=== PATIENT | female | born 1960 | race Caucasian/White ===

== ENCOUNTER 2016-12-14 09:36 | Outpatient (CLI) | payer OTHER ==
[2015-09-30 19:07] VITALS: BP 161/84
[2016-12-14 10:33] LABS: eGFR (African) > 60; eGFR (Non-African) > 60
== END 2016-12-14 09:37 ==
LOC: LAB 09:36
PROVIDERS: ATTEND Internal Medicine Cardiovascular Disease
DX: I10 Essential (primary) hypertension (principal)
CPT/HCPCS: 36415; 80048

== ENCOUNTER 2017-04-04 15:13 | Outpatient (CLI) | payer OTHER ==
[2015-09-30 19:07] VITALS: BP 161/84
== END 2017-04-04 15:14 ==
LOC: LABRHC 15:13
PROVIDERS: ATTEND Family Medicine
DX: Z12.4 Encounter for screening for malignant neoplasm of cervix (principal)
CPT/HCPCS: 88148; G0143

== ENCOUNTER 2018-01-09 10:54 | Outpatient (CLI) | payer OTHER ==
[2015-09-30 19:07] VITALS: BP 161/84
== END 2018-01-09 10:56 ==
LOC: LAB 10:54
PROVIDERS: ATTEND Psychiatry & Neurology Neurology
DX: I67.9 Cerebrovascular disease, unspecified (principal)
CPT/HCPCS: 36415; 80061; 82306; 83036

== ENCOUNTER 2018-05-26 08:30 | Outpatient (CLI) | payer OTHER ==
[2015-09-30 19:07] VITALS: BP 161/84
== END 2018-05-26 08:32 ==
LOC: LAB 08:30
PROVIDERS: ATTEND Psychiatry & Neurology Neurology
DX: Z79.899 Other long term (current) drug therapy (principal); Z91.89 Other specified personal risk factors, not elsewhere classified
CPT/HCPCS: 80061; 83036

== ENCOUNTER 2018-10-25 15:09 | Outpatient (CLI) | payer OTHER ==
[2015-09-30 19:07] VITALS: BP 161/84
[2018-10-25 15:24] LABS: BASOPHILS % 0.8 (0.0-1.5); EOSINOPHILS % 3.9 % (0.0-6.8); MEAN CORPUSCULAR HEMOGLOBIN 31.5 pg (28.0-34.0); MONOCYTES % 6.4 % (0.0-11.0); NEUTROPHILS # 4.7 # k/uL (1.4-7.7)
[2018-10-25 15:49] LABS: eGFR (Non-African) > 60
--- NOTE | 2018-10-26 02:08 | Diagnostic Imaging Report ---
ALYCIA BHATT [facility] [address] [facility] [address] [address] Report Submission Date: Oct 25, 2018 3:50:37 PM NETWORK CONTROL TECHNICIAN Patient Study Name: ROMAN LAMB Date: Oct 25, 2018 3:20:27 PM NETWORK CONTROL TECHNICIAN Modality Type: DX Gender: F Description: ABDOMEN 1VIEW : 56 Institution: [facility] Physician: ALYCIA BHATT Exam: Single view abdomen. History: Right lower quadrant pain for 6 weeks. No previous studies are available for comparison. Scattered loops of bowel gas in both large and small intestine is noted with a moderate amount of retained fecal material seen in the right colon. Surgical clips in the right side the abdomen are noted indicating previous laparotomy. No organomegaly is seen. No renal or biliary calcifications are noted. Impression: Nonspecific bowel gas pattern. Numerous surgical clips in the right side the abdomen are noted. Electronically signed on Oct 25, 2018 3:50:37 PM NETWORK CONTROL TECHNICIAN by: Frandy DILLARD
== END 2018-10-25 15:11 ==
LOC: LAB 15:09
PROVIDERS: ATTEND Family Medicine
DX: R10.31 Right lower quadrant pain (principal)
CPT/HCPCS: 36415; 74018; 80053; 85025

== ENCOUNTER 2018-10-29 07:51 | Outpatient (CLI) | payer OTHER ==
[2015-09-30 19:07] VITALS: BP 161/84
--- NOTE | 2018-10-29 09:06 | Diagnostic Imaging Report ---
ALYCIA BHATT [facility] [address] [facility] [address] [place], [place]. [address] Report Submission Date: Oct 29, 2018 8:57:51 AM NURSE AUDITOR Patient Study Name: ROMAN LAMB Date: Oct 29, 2018 8:08:58 AM NURSE AUDITOR Modality Type: CT\SR Gender: F Description: CT ABD PELVIS W/ CON : 56 Institution: [facility] Physician: ALYCIA BHATT Exam: CT abdomen and pelvis with contrast. History: Right lower quadrant pain. Bloating for one week. History of previous right nephrectomy and appendectomy. Axial images through the abdomen and pelvis after IV infusion of contrast material is submitted along with sagittal and coronal reformatted images. The visualized lower lung lomeli are clear. No free intraperitoneal air is identified. The gallbladder is distended without stones. The liver, spleen and pancreas are normal attenuation and enhancement without space-occupying lesion. The adrenal glands are normal configuration. The abdominal aorta is of normal caliber. Atherosclerotic plaque is seen. No significant periaortic lymphadenopathy is identified. The right kidney is surgically absent. Left kidney is normal in attenuation and enhancement without hydronephrosis. The urinary bladder is partially distended without intrinsic filling defect. Surgical mass over the right side the abdomen is noted. The small bowel is of normal caliber. Air and stool seen throughout the large intestine. No inflammatory changes in the mesentery or ascites is identified. Degenerative changes in the lumbar spine are noted. Impression: The solid organs of the abdomen appear to be normal in attenuation and enhancement. Previous right nephrectomy. Surgical mesh over the right side the abdomen is noted. Nonspecific bowel gas pattern. No inflammatory changes in the mesentery or ascites is identified. Electronically signed on Oct 29, 2018 8:57:51 AM NURSE AUDITOR by: Frandy DILLARD
--- NOTE | 2018-10-29 09:49 | Diagnostic Imaging Report ---
ALYCIA BHATT [facility] [address] [facility] [address] [place], [place]. [address] Report Submission Date: Oct 29, 2018 8:57:51 AM SOCIETY REPORTER Patient Study Name: ROMAN LAMB Date: Oct 29, 2018 8:08:58 AM SOCIETY REPORTER Modality Type: CT\SR Gender: F Description: CT ABD PELVIS W/ CON : 56 Institution: [facility] Physician: ALYCIA BHATT Exam: CT abdomen and pelvis with contrast. History: Right lower quadrant pain. Bloating for one week. History of previous right nephrectomy and appendectomy. Axial images through the abdomen and pelvis after IV infusion of contrast material is submitted along with sagittal and coronal reformatted images. The visualized lower lung lomeli are clear. No free intraperitoneal air is identified. The gallbladder is distended without stones. The liver, spleen and pancreas are normal attenuation and enhancement without space-occupying lesion. The adrenal glands are normal configuration. The abdominal aorta is of normal caliber. Atherosclerotic plaque is seen. No significant periaortic lymphadenopathy is identified. The right kidney is surgically absent. Left kidney is normal in attenuation and enhancement without hydronephrosis. The urinary bladder is partially distended without intrinsic filling defect. Surgical mass over the right side the abdomen is noted. The small bowel is of normal caliber. Air and stool seen throughout the large intestine. No inflammatory changes in the mesentery or ascites is identified. Degenerative changes in the lumbar spine are noted. Impression: The solid organs of the abdomen appear to be normal in attenuation and enhancement. Previous right nephrectomy. Surgical mesh over the right side the abdomen is noted. Nonspecific bowel gas pattern. No inflammatory changes in the mesentery or ascites is identified. Electronically signed on Oct 29, 2018 8:57:51 AM SOCIETY REPORTER by: Frandy Arora Addendum: Exam: CT abdomen and pelvis with contrast. History: Right lower quadrant pain. Bloating for one week. History of previous right nephrectomy and appendectomy. Axial images through the abdomen and pelvis after IV infusion of contrast material is submitted along with sagittal and coronal reformatted images. The visualized lower lung lomeli are clear. No free intraperitoneal air is identified. The gallbladder is distended without stones. The liver, spleen and pancreas are normal attenuation and enhancement without space-occupying lesion. The adrenal glands are normal configuration. The abdominal aorta is of normal caliber. Atherosclerotic plaque is seen. No significant periaortic lymphadenopathy is identified. The right kidney is surgically absent. Left kidney is normal in attenuation and enhancement without hydronephrosis. The urinary bladder is partially distended without intrinsic filling defect. Surgical mesh over the right side the abdomen is noted. The small bowel is of normal caliber. Air and stool seen throughout the large intestine. No inflammatory changes in the mesentery or ascites is identified. Degenerative changes in the lumbar spine are noted. Impression: The solid organs of the abdomen appear to be normal in attenuation and enhancement. Previous right nephrectomy. Surgical mesh over the right side the abdomen is noted. Nonspecific bowel gas pattern. No inflammatory changes in the mesentery or ascites is identified. Addendum electronically signed by Frandy Arora on October 29, 2018 9:32:50 AM CARLO DILLARD
== END 2018-10-29 07:53 ==
LOC: RAD 07:51
PROVIDERS: ATTEND Family Medicine
DX: R10.31 Right lower quadrant pain (principal)
CPT/HCPCS: 74177; Q9967

== ENCOUNTER 2018-12-03 14:15 | Outpatient (CLI) | payer OTHER ==
[2015-09-30 19:07] VITALS: BP 161/84
--- NOTE | 2018-12-03 14:50 | Diagnostic Imaging Report ---
ALYCIA BHATT [facility] [address] [facility] [address] [address] Report Submission Date: Dec 03, 2018 2:46:13 PM CDT Patient Study Name: ROMAN LMAB Date: Dec 03, 2018 2:28:35 PM CDT Modality Type: DX Gender: F Description: L SPINE 2 OR 3 VIEWS : 56 Institution: [facility] Physician: ALYCIA BHATT EXAMINATION: L SPINE 2 OR 3 VIEWS HISTORY: LOWER BACK PAIN. NECK INJURY IN 2010. (Hx) COMPARISON: 10/29/2018 FINDINGS: Scattered surgical clips and mesh are noted. The vertebral bodies are normally aligned. No acute fracture or compression deformity is identified. There is minimal degenerative disc and joint disease. There are anterior osteophytes at L1/L2. IMPRESSION: Minimal lumbar degenerative change without acute fracture or subluxation identified. Electronically signed on Dec 03, 2018 2:46:13 PM CDT by: Jaya DILLARD
== END 2018-12-03 14:20 ==
LOC: RAD 14:15
PROVIDERS: ATTEND Family Medicine
DX: M47.896 Other spondylosis, lumbar region (principal); M54.42 Lumbago with sciatica, left side
CPT/HCPCS: 72100

== ENCOUNTER 2018-12-18 15:48 | Outpatient (CLI) | payer OTHER ==
[2015-09-30 19:07] VITALS: BP 161/84
--- NOTE | 2018-12-24 17:03 | CONSULTATION REPORT ---
NEW PATIENT CHIEF COMPLAINT: Low back pain. HISTORY OF PRESENT ILLNESS: The patient is a 58-year-old female who presents for evaluation of chronic low back pain for the past 2-3 years. The patient says that she thinks the low back pain may have started when she fell at work. She did have a Workers Compensation case for that injury but it only covered neck pain because at the time she didnt have much back pain. That Workers Compensation case is closed. The patient states that her back pain developed at some point after that fall but she attributes her pain to the fall. She denies any formal medical treatment for her low back pain. She denies any lumbar spine surgery or interventional procedures for low back pain. She has had steroid injections to bilateral greater trochanter bursa in 2019 with good pain relief for 3-4 months. She denies any physical therapy or chiropractic therapy for the low back pain. The patient does have a history of chronic neck pain as well and had several cervical epidurals prior to 2009. She eventually underwent cervical spine surgery (probable ACDF from C4 to C6?) in 2010. The patient says she continues to have some chronic neck pain following that surgery and she has had several cervical spine injections since 2010. However, her low back pain is significantly worse than her neck pain so she wants to focus on low back pain today. She has had physical therapy for her neck back in 2010 but no therapy since that time and she denies chiropractic therapy for her neck. The patient is not currently taking any prescription pain medications. She does have an old prescription for tramadol but she doesnt take it because it hasnt helped much. She has not taken any [id number] pain medications either. She did have x- rays last week of her low back which show minimal lumbar degenerative change without acute fracture or subluxation. She also reports having an MRI of her lumbar spine in the last week, however, I do not have radiology report or CD images of that study for my review today. The low back pain is described as constant, aching, throbbing, stabbing in character rated 7/10 in intensity. The pain is located in midline low back, bilateral lumbar paraspinals and bilateral sacral sulcus. She denies pain radiation into the lower extremities but she does report occasional numbness and tingling in the right lower extremity in the posterior thigh that occurs once or twice a week and occasionally the numbness and tingling radiates all the way to the foot. Her low back pain is worse with prolonged sitting, sit to stand, bending, or prolonged walking. She also reports pain at the lateral hips at the greater trochanter bursa which is primarily worse with prolonged walking. Her pain improves with rest and lying down. She denies any saddle anesthesia, bowel or bladder incontinence. She denies lower extremity weakness or pain. PAST MEDICAL HISTORY: Includes renal disorder and migraine headaches. PAST SURGICAL HISTORY: Prior kidney resection, appendectomy, neck surgery. FAMILY HISTORY: Includes acute myocardial infarction in a brother, heart disease in a sister, colon cancer in her mother, ovarian cancer in grandmother, and generalized cancer. SOCIAL HISTORY: The patient is and has 3 children. She currently smokes about 1.5 packs per day of cigarettes. She denies alcohol or illegal drug use. Her highest level of education achieved was 16 years. She is currently retired and used to work at the [employer] in [place]. REVIEW OF SYSTEMS: A 14-point review of systems was performed and was positive for low back pain as described in HPI above, otherwise is negative for all systems. For further details on past medical history, social history, family history and review of systems please see the paper charts at [facility]. PHYSICAL EXAMINATION: VITALS: Blood pressure 145/82, pulse 79, respirations 14. Oxygen saturation 93% on room air. GENERAL: The patient is alert and oriented x 4, pleasant and cooperative. The patient has obesity. HEENT: Pupils are equal and reactive to light and accommodation. Extraocular muscles intact. No gross abnormalities. CARDIOVASCULAR: Regular rate and rhythm. No murmurs, rubs or gallops. PULMONARY: Lungs are clear to auscultation bilaterally. ABDOMEN: Soft, nontender, nondistended. : Deferred. SKIN: No rashes or lesions identified. MUSCULOSKELETAL: Lumbar inspection shows no gross abnormalities. Lumbar spine range of motion is full in flexion but decreased in extension with pain at end range of both flexion and extension. There is positive CHAPITO, positive FAIR and positive Stinchfields creating low back pain. There is positive pain with facet loading in extension and rotation. Positive tenderness to palpation at spinous processes, bilateral lumbar paraspinals and sacral sulci. Negative seated slump and straight leg raise bilaterally. Hips: Range of motion is normal and full in bilateral hips. No groin pain with a negative CHAPITO, FAIR and Stinchfields. There is positive tenderness to palpation at bilateral greater trochanter bursa. Positive Obers bilaterally. NEUROLOGIC: Cranial nerves II-XII grossly intact. No focal deficits. Deep tendon reflexes are 1/4 in bilateral patellar, medial hamstring and Achilles tendons. Manual muscle testing shows normal strength in bilateral lower extremities with 5/5 hip flexion, hip abduction, knee flexion, knee extension, dorsiflexion, EHL extension and plantar flexion. Sensation to light touch is intact in bilateral lower extremities in all dermatomes symmetrically. Plantar reflexes are downgoing bilaterally, no clonus or fasciculations. RADIOLOGY: Lumbar spine x-rays, dated 10/29/18: Impression: 1) Minimal lumbar degenerative change without acute fracture or subluxation identified. Findings: Scattered surgical clips and mesh are noted. The vertebral bodies are normally aligned. No acute fracture or compression deformity is identified. There is minimal degenerative disc and joint disease. There are anterior osteophytes at L1, L2. ASSESSMENT: 1. Chronic low back pain. 2. Lumbar facet arthropathy. 3. Probable lumbar degenerative disc disease. 4. Probable lumbar spinal stenosis. 5. Bilateral trochanteric bursitis. 6. Obesity. 7. Tobacco use. PLAN: 1. Schedule bilateral L4-5, L5-S1 facet joint steroid injections for 2 weeks from now at my next visit to [facility]. 2. Tentatively schedule bilateral trochanteric bursa steroid injections for 4 weeks from now at [facility]. 3. Urine drug screen to be obtained today or at next visit in order to screen the patient. This needs to be done before I can offer any prescriptions for opioids or other controlled substances. Note: I spent over 40 minutes with this patient of which greater than 50% was spent in counseling and education ([id number]). Kb Alegria M.D. NE/jason Job #[id number] [facility]
== END 2018-12-18 15:50 ==
LOC: OUT 15:48
PROVIDERS: ATTEND Physical Medicine & Rehabilitation
DX: M46.96 Unspecified inflammatory spondylopathy, lumbar region (principal); M70.62 Trochanteric bursitis, left hip; M70.61 Trochanteric bursitis, right hip; E66.9 Obesity, unspecified; F17.210 Nicotine dependence, cigarettes, uncomplicated
CPT/HCPCS: 99214

== ENCOUNTER 2019-04-25 14:20 | Outpatient (CLI) | payer OTHER ==
[2015-09-30 19:07] VITALS: BP 161/84
--- NOTE | 2019-04-26 14:15 | Diagnostic Imaging Report ---
CONOR CEBALLOS [facility] [address] [facility] [address] Report Submission Date: Apr 25, 2019 4:04:23 PM CDT Patient Study Name: ROMAN LAMB Date: Apr 25, 2019 3:16:46 PM CDT Modality Type: DX Gender: F Description: PELVIS AP 1 OR 2 VIEWS : 56 Institution: [facility] Physician: CONOR CEBALLOS Exam: AP pelvis. History: Low back pain. No previous studies are available for comparison. No fracture or dislocations are seen. No bony erosions are seen. Surgical clips in the lower abdomen are noted. Impression: No acute fracture. Electronically signed on Apr 25, 2019 4:04:23 PM CDT by: Frandy DILLARD
--- NOTE | 2019-04-26 14:16 | Diagnostic Imaging Report ---
CONOR CEBALLOS [facility] [address] [facility] [address] [address] Report Submission Date: Apr 25, 2019 4:19:43 PM CDT Patient Study Name: ROMAN LAMB Date: Apr 25, 2019 3:16:46 PM CDT Modality Type: DX Gender: F Description: L SPINE 6 VIEWS : 56 Institution: [facility] Physician: CONOR CEBALLOS Examination: Plain film lumbar spine History: RT SACROILITIS, LOW BACK PAIN X1 YEAR, PT STATES NO KNOWN INJURY Findings: 7 views of the lumbar spine demonstrates osteopenia. Scattered degenerative spurring. No anterior compression. Oblique views demonstrate facet degenerative changes. Normal flexion and extension imaging. Vascular calcifications. Impression: Osteopenia and degenerative changes. No vertebral body compression deformity. Electronically signed on Apr 25, 2019 4:19:43 PM CDT by: Montrell DILLARD
--- NOTE | 2019-04-26 14:17 | Diagnostic Imaging Report ---
CONOR CEBALLOS [facility] [address] [facility] [address] [place], [place]. [address] Report Submission Date: Apr 25, 2019 4:24:53 PM CDT Patient Study Name: ROMAN LAMB Date: Apr 25, 2019 3:16:46 PM CDT Modality Type: DX Gender: F Description: C SPINE 4 VIEWS OR MORE : 56 Institution: [facility] Physician: CONOR CEBALLOS Exam: Cervical spine. History: Neck pain. AP, lateral, both oblique views and open mouth odontoid view of the cervical spine are submitted. Anterior fusion of C5, C6 and C7 levels are noted. Some reversal of the normal lordotic curvature in the upper cervical spine is noted. The vertebral body heights and visualized intervertebral disc spaces are adequately maintained. The bony elements of the neural canal in the odontoid process are intact. Prevertebral soft tissues are normal. Intervertebral foramina are patent. Impression: Previous fusion from C5-C7. No acute fracture is identified. Electronically signed on Apr 25, 2019 4:24:53 PM CDT by: Frandy DILLARD
--- NOTE | 2019-05-01 16:11 | OP Clinic Progress Note ---
CHIEF COMPLAINT: Low back pain HISTORY OF PRESENT ILLNESS: Gina is a 58-year-old female patient who presents for followup of her low back pain. Dr. Alegria had ordered bilateral L4-5, L5-S1 facet joint injections in November, however, the patient just completed those on 03/05/2019. She tells me that her pain prior to the procedure was a 7/10 and went down to a 0/10 and remained somewhat improved. Today, her main complaint is her right SI joint area. It has been worse over the last several weeks and is making it difficult for her to function as normal. The patient also has a history of chronic neck pain with a fusion surgery in approximately 2010. The patient continues to have some neck pain. The patient really is not interested in pursuing further injections at this time. She would rather focus on other modalities to treat her pain symptoms. I did discuss in length with her manipulation under anesthesia and the patient is willing to consult with Dr. Jerod Escalante. REVIEW OF SYSTEMS: A 14-point review of systems was performed and was positive for low back pain and neck pain. OBJECTIVE: General: This is an obese female patient presenting in no acute distress. Vital Signs: She is 5 feet 8 inches tall, weighs 218 pounds. Pulse is 85, respiratory rate is 20, blood pressure is 120/77 with an SAO2 of 95% on room air. She is rating her pain a 7-8/10. Psych: She is alert and oriented x3. She is calm, pleasant and cooperative. HEENT: Normocephalic and atraumatic. No gross abnormalities. Pupils are equal and round without miosis. Sclerae are clear. Cardiovascular: There is no lower extremity edema. Pulmonary: Nonlabored respirations at rest. Musculoskeletal: The patient has generalized tenderness to palpation over the cervical spine and cervical paraspinals. The patient also has tenderness to palpation over L3-4 but more so over L4-5 and L5-S1 levels. The patient also has tenderness to palpation over the right SI joint. Bilateral lower extremity strength testing is equal and strong in all areas graded 5/5 in hip flexion, knee extension, knee flexion, dorsiflexion and plantar flexion. Neuro: Cranial nerves II through XII are grossly intact. Sensation to light touch is intact in bilateral upper and lower extremities. IMPRESSIOIN: 1. Chronic low back pain. 2. Lumbar facet arthropathy. 3. Right sacroilitis. 4. Cervicalgia. 5. Obesity. 6. Tobacco use, current. PLAN: 1. Obtain an AP pelvis x-ray. 2. L-spine x-ray series to include flexion and extension. 3. C-spine x-ray series to include flexion, extension and odontoid. 4. Referral to Dr. Jerod Escalante for evaluation for ELIZABETH. 5. The patient is to follow up in one month or sooner if needed. The patient verbalizes understanding and agrees to the current treatment plan. Sarah Barton NP Nurse Practitioner (Dictated/not signed) /[employer] [id number] jrd cc: Mckayla Moran M.D. MTDD
== END 2019-04-25 14:50 ==
LOC: OUT 14:20
PROVIDERS: ATTEND Nurse Practitioner Adult Health
DX: M46.1 Sacroiliitis, not elsewhere classified (principal); M54.2 Cervicalgia; E66.9 Obesity, unspecified; F17.200 Nicotine dependence, unspecified, uncomplicated
CPT/HCPCS: 72050; 72170; 99213; G0463

== ENCOUNTER 2019-05-15 09:55 | Outpatient (CLI) | payer OTHER ==
[2015-09-30 19:07] VITALS: BP 161/84
== END 2019-05-15 10:55 ==
LOC: OUT 09:55
PROVIDERS: ATTEND Chiropractor
DX: M99.05 Segmental and somatic dysfunction of pelvic region (principal); M99.06 Segmental and somatic dysfunction of lower extremity; M70.61 Trochanteric bursitis, right hip; M47.27 Other spondylosis with radiculopathy, lumbosacral region; M47.21 Other spondylosis with radiculopathy, occipito-atlanto-axial region
CPT/HCPCS: 99213

== ENCOUNTER 2019-05-28 11:55 | Outpatient (CLI) | payer OTHER ==
[2015-09-30 19:07] VITALS: BP 161/84
[2019-06-10 12:31] LABS: BASOPHILS % 0.9 % (0.0-1.5); NEUTROPHILS # 5.6 # k/uL (1.4-7.7); eGFR (Non-African) > 60
== END 2019-05-28 12:55 ==
LOC: OUT 11:55
PROVIDERS: ATTEND Nurse Practitioner Adult Health
DX: M99.05 Segmental and somatic dysfunction of pelvic region (principal); M99.06 Segmental and somatic dysfunction of lower extremity; M70.61 Trochanteric bursitis, right hip; M47.27 Other spondylosis with radiculopathy, lumbosacral region; M47.21 Other spondylosis with radiculopathy, occipito-atlanto-axial region
CPT/HCPCS: 80053; 85025; 99213; G0463